=== PATIENT | male | born 1990 | race Caucasian/White ===

== ENCOUNTER → 2020-08-08 09:22 | Outpatient (CLI) | payer OTHER, MEDICAID, SELFPAY ==
--- NOTE | 2020-08-08 | DI.RAD.S_ITS ---
PROCEDURE: XR FOOT RT 2V INDICATIONS: FB RIGHT FOOT TECHNIQUE: 2 views of the foot were acquired. COMPARISON: None. FINDINGS: Bones: No fractures or dislocations. No suspicious bony lesions. Soft tissues: No tibiotalar joint effusion. Achilles tendon appears normal. 2 millimeter ovoid density noted adjacent to the medial margin of the head of the 5th metatarsal which may represent accessory ossicle versus radiodense foreign body. IMPRESSION: 2 millimeter radiodense foreign body versus accessory ossicle adjacent to the head of the 5th metatarsal. Dictated by: Jonelle March MD, PhD on 08/11/2020 at 15:54 Approved by: Jonelle March MD, PhD on 08/11/2020 at 15:56
== END ==
PROVIDERS: Family Provider Nurse Practitioner Family; PCP Student in an Organized Health Care Education/Training Program; Referring Provider Student in an Organized Health Care Education/Training Program; Visit Provider Student in an Organized Health Care Education/Training Program
DX: M79.5 Residual foreign body in soft tissue (principal)
CPT/HCPCS: 73620

== ENCOUNTER → 2020-11-13 09:35 | Outpatient (CLI) | payer OTHER, MEDICAID, SELFPAY ==
--- NOTE | 2020-11-13 | DI.RAD.S_ITS ---
PROCEDURE: XR HAND RT MIN 3V INDICATIONS: RIGHT DORSAL HAND W/ SWELLING, REDNESS, PAIN X 3 WEEKS TECHNIQUE: 3 views of the hand(s) acquired. COMPARISON: None. FINDINGS: Bones: No fractures or dislocations. Carpal bones are normally aligned. No suspicious bony lesions. Soft tissues: Ulnar-sided soft tissue swelling. No radiopaque foreign body. IMPRESSION: No fracture. Soft tissue swelling. If the patient's pain or other symptoms persist, consider further evaluation with MRI Dictated by: Yobani Estrada M.D. on 11/13/2020 at 10:10 Approved by: Yobani Estrada M.D. on 11/13/2020 at 10:13
== END ==
PROVIDERS: Family Provider Nurse Practitioner Family; PCP Student in an Organized Health Care Education/Training Program; Referring Provider Nurse Practitioner Family; Visit Provider Nurse Practitioner Family
DX: M79.641 Pain in right hand (principal); M79.89 Other specified soft tissue disorders
CPT/HCPCS: 73130

== ENCOUNTER → 2021-12-24 10:37 | Outpatient (CLI) | payer OTHER, MEDICAID, SELFPAY ==
--- NOTE | 2021-12-24 | DI.RAD.S_ITS ---
PROCEDURE: XR HAND RT MIN 3V INDICATIONS: RIGHT HAND PAIN TECHNIQUE: 3 views of the hand(s) acquired. COMPARISON: [facility], , XR HAND RT MIN 3V, 11/13/2020, 9:40. FINDINGS: Bones: No fractures or dislocations. Carpal bones are normally aligned. No suspicious bony lesions. Soft tissues: No suspicious soft tissue calcifications. IMPRESSION: Unremarkable right hand radiographs Approved by: Oliver Bailey M.D. on 12/24/2021 at 15:29
== END ==
PROVIDERS: Family Provider Nurse Practitioner Family; PCP Student in an Organized Health Care Education/Training Program; Referring Provider Student in an Organized Health Care Education/Training Program; Visit Provider Student in an Organized Health Care Education/Training Program
DX: M79.641 Pain in right hand (principal)
CPT/HCPCS: 73130

== ENCOUNTER 2021-12-25 09:20 | Emergency (ER) | payer OTHER, MEDICAID, SELFPAY ==
[2021-12-25 09:27] VITALS: BP 126/49; PULSE 88; RESP 16; TEMP 36.5; O2SAT 99; BMI 29.9
[2021-12-25 09:57] VITALS: BP 74/71; PULSE 50; RESP 15
[2021-12-25 10:00] VITALS: BP 74/38; PULSE 50; RESP 16
--- NOTE | 2021-12-25 10:01 | PC.NURSE ---
Pt w/ known vagal response to needle sticks. Layed supine in recliner prior to IV start. IV started w/o difficulty. Pt c/o dizziness but remained conscious. [place] better after 3-4 min. IV fluid order obtained.
[2021-12-25] MEDS: SODIUM CHLORIDE 0.9% 1,000 ML 1000 ML IV (10:03)
[2021-12-25 10:06] LABS: Add Manual Diff / Slide Review NO; Basophils Absolute Auto 0 /uL (0-100); Basophils Percent Auto 0.4 % (0-2); Eosinophils Absolute Auto 0 /uL (0-450); Eosinophils Percent Auto 0.2 % (2-4); Hematocrit 43.9 % (41-53); Hemoglobin 15.2 g/dL (13.5-17.5); Lymphocytes Absolute Auto 1900 /uL (1100-4500); Mean Corpuscular HGB Conc 34.5 % (30-36); Mean Corpuscular Hemoglobin 29.5 PG (26-34); Mean Corpuscular Volume 85.5 fL (80-100); Monocytes Absolute Auto 1000 /uL (0-900); Monocytes Percent Auto 8.5 % (3-14); Neutrophils Absolute Auto 8700 /uL (1500-7000); Neutrophils Percent Auto 74.9 % (50-75); Platelet Count 214 X10^3/uL (150-400); Red Blood Cell Count 5.14 X10^6/uL (4.5-5.9); Red Cell Distribution Width 12.8 % (11.6-14.8); White Blood Cell Count 11.6 X10^3/uL (4.5-11.0)
[2021-12-25 10:12] VITALS: BP 115/56; PULSE 80; RESP 17; O2SAT 99
--- NOTE | 2021-12-25 10:14 | ED.ABDPAIN ---
HPI - Abdominal Pain General Chief Complaint: Abdominal Pain Stated Complaint: left side pain/worse when eating/sent by [facility] Time Seen by Provider: 12/25/21 10:05 Source: patient Mode of arrival: Ambulatory History of Present Illness HPI narrative: Patient is a 31-year-old male who has history of acid reflux and ADHD presenting today left lower quadrant pain which started yesterday. His says it definitely gets worse with food. He has no change in bowel habits no fever nausea vomiting. He has had decrease in appetite and food intake due to his pain associated with food. No prior history of diverticulitis. He denies any flank pain. Related Data Home Medications Medication Instructions Recorded Confirmed famotidine 20 mg tablet 20 mg PO BEDTIME 12/25/21 12/25/21 methylphenidate HCl 5 mg tablet 5 mg PO TID PRN 12/25/21 12/25/21 Previous Rx's Medication Instructions Recorded ciprofloxacin HCl 500 mg tablet 500 mg PO BID #20 tab 12/25/21 (Cipro) metronidazole 500 mg tablet 500 mg PO Q8H 10 Days #30 tab 12/25/21 Allergies Allergy/AdvReac Type Severity Reaction Status Date / Time No Known Drug Allergies Allergy Verified 12/25/21 09:30 Review of Systems Review of Systems Narrative: GENERAL: Denies chills, fatigue, malaise, fever, sweats, travel HEENT: Denies sinus pain, ear pain, sore throat, difficulty swallowing, neck pain RESPIRATORY: Denies dyspnea, cough, wheezing, hemoptysis, sputum. CARDIOVASCULAR: Denies chest pain, palpitations, orthopnea, edema GASTROINTESTINAL: See HPI : Denies dysuria, frequency, incontinence, hematuria, urinary retention, flank pain. MUSCULOSKELETAL: Denies weakness, joint pain, or bony pain SKIN: No rash, no erythema, no pruritus NEUROLOGIC: Denies weakness, dizziness, headache, numbness, change in speech, confusion PSYCHIATRIC: No concerning psychosocial issues. 12 point review of systems is negative except for those stated above and HPI Patient History Medical History ADHD GERD (gastroesophageal reflux disease) Social History Smoking Status: Never smoker Smoking Status: Never smoker alcohol intake frequency: a few times a week Substance Use Type: does not use Exam Initial Vital Signs Initial Vital Signs: Vital Signs Temperature 97.7 F 12/25/21 09:27 Pulse Rate 88 12/25/21 09:27 Respiratory Rate 16 12/25/21 09:27 Blood Pressure 126/49 L 12/25/21 09:27 Pulse Oximetry 99 12/25/21 09:27 GENERAL: Well-appearing 31-year-old male and in no acute distress. HEENT: Head atraumatic,EOMI, pupils reactive, face symmetric, moist mucous membranes CARDIOVASCULAR: Regular rate and rhythm without murmurs, rubs or gallops. RESPIRATORY: Breath sounds equal bilaterally, no wheezes rales or rhonchi. ABDOMEN: Soft, left lower quadrant pain no guarding no rebound no right upper quadrant pain no right lower quadrant : No CVA tenderness EXTREMITIES: Normal range of motion, no clubbing or edema. Neurovascularly intact NEUROLOGICAL: Alert and oriented x4.N SKIN: Warm, dry, no laceration, no petechiae, no rashes or lesions. Course Orders Ordered: ED Orders 12/25/21 09:55 Complete Blood Count AUTO DIFF Stat Comprehensive Metabolic Panel Stat Lipase Stat 12/25/21 11:20 Urine Microscopic Stat Discontinued Medications Sodium Chloride (Normal Saline 0.9%) 1,000 mls @ 1,000 mls/hr IV BOLUS ONE Stop: 12/25/21 11:00 Last Infusion: 12/25/21 11:16 Dose: 0 mls/hr Documented by: Admin: 12/25/21 10:03 Dose: 1,000 mls/hr Documented by: BERTRAND Vital Signs Vital signs: Vital Signs - 8 hr 12/25/21 11:20 Pulse Rate 70 Respiratory Rate 16 Blood Pressure 122/72 Pulse Oximetry 99 MDM - Abdominal Pain Lab Data Result diagrams: 12/25/21 09:55 12/25/21 09:55 Labs: Lab Results 12/25/21 12/25/21 12/25/21 Range/Units 09:55 09:55 11:20 WBC 11.6 H (4.5-11.0) X10^3/uL RBC 5.14 (4.5-5.9) X10^6/uL Hgb 15.2 (13.5-17.5) g/dL Hct 43.9 (41-53) % MCV 85.5 (80-100) fL MCH 29.5 (26-34) PG MCHC 34.5 (30-36) % RDW 12.8 (11.6-14.8) % Plt Count 214 (150-400) X10^3/uL Neut % (Auto) 74.9 (50-75) % Lymph % (Auto) 16.0 L (25-40) % Phillips % (Auto) 8.5 (3-14) % Eos % (Auto) 0.2 L (2-4) % Baso % (Auto) 0.4 (0-2) % Neut # (Auto) 8700 H (7356-3699) /uL Lymph # (Auto) 1900 (9706-5223) /uL Phillips # (Auto) 1000 H (0-900) /uL Eos # (Auto) 0 (0-450) /uL Baso # (Auto) 0 (0-100) /uL Sodium 138 (137-145) mmol/L Potassium 4.2 (3.4-5.1) mmol/L Chloride 103 (98-107) mmol/L Carbon Dioxide 29 (22-32) mmol/L BUN 13 (9-20) mg/dL Creatinine 1.00 (0.66-1.25) mg/dL Estimated GFR > 60.0 (>60) mL/min BUN/Creatinine Ratio 13.0 (6-22) Glucose 99 (70-100) mg/dL Calcium 8.9 (8.4-10.2) mg/dL Total Bilirubin 1.2 (0.2-1.3) mg/dL AST 24 (17-59) IU/L ALT 32 (<50) IU/L Alkaline Phosphatase 71 (38-126) U/L Total Protein 7.7 (6.3-8.2) g/dL Albumin 4.7 (3.5-5.0) g/dL Globulin 3.0 (1.7-4.1) g/dL Albumin/Globulin Ratio 1.6 (1.0-2.8) Lipase 35 (23-300) U/L Urine RBC None seen (0-5/HPF) Urine WBC 0-1/hpf (0-5/HPF) Urine Bacteria None seen (None) Urine Mucus 1+ H (Negative) Ur Culture Indicated? Cult not indicated Point of care testing: Urine Dip Bedside Urine Glucose Negative Bedside Urine Bilirubin + 1 Bedside Urine Ketone +/- 5 Urine Specific [place] 1.015 Bedside Urine Occult Blood - Negative Bedside Urine pH 7.0 Bedside Urine Protein + 30 Bedside Urine Urobilinogen - Negative Bedside Urine Nitrite - Negative MDM Narrative Medical decision making narrative: Patient had a vasovagal like reaction with the IV, got better with IV fluids and like down. Patient has pain is left lower quadrant worse with food. Blood work is overall reassuring with mild leukocytosis. Discussed with him CT versus antibiotics and watchful waiting. At this time his like to hold off on the CT which I think is very reasonable and return if needed. Discharge Plan Departure Patient Disposition: Home Clinical Impression: Diverticulitis Instructions: Diverticulitis Activity Restrictions/Additional Instructions: *You have been diagnosed with diverticulitis *What to do: At this time try antibiotics. Give it 2-3 days her pain should start improving. His if her pain gets worse or you have fever or bloody stools please return to emergency department for further workup including CT scan. *Continue to take medications as directed--> SENT TO [facility] Cipro 500 mg twice a day for 10 days Flagyl 500 mg 3 times a day for 10 days (do not drink alcohol with this it will make you vomit) Motrin 600 mg every 6 hours if needed for [id number] pain Tylenol 1000 mg every 6 hours if needed the [id number] *Follow up with your primary care provider in 2-3 days or call [phone] *Return to ER if you should have increasing pain nausea vomiting, fever or any new, worsening or concerning symptoms Prescriptions: New metronidazole 500 mg tablet 500 mg PO Q8H 10 Days Qty: 30 0RF ciprofloxacin HCl [Cipro] 500 mg tablet 500 mg PO BID Qty: 20 0RF No Action methylphenidate HCl 5 mg tablet 5 mg PO TID PRN (Reason: adhd symptoms) 0RF Label Comments: take 1 tablet by mouth three times a day famotidine 20 mg tablet 20 mg PO BEDTIME 0RF Label Comments: take 1 tablet by mouth at bedtime Referrals: Evonne Crain MD [Primary Care Provider] -
[2021-12-25 10:22] LABS: Alanine Aminotransferase 32 IU/L (<50); Albumin 4.7 g/dL (3.5-5.0); Albumin Globulin Ratio 1.6 (1.0-2.8); Alkaline Phosphatase 71 U/L (38-126); Aspartate Aminotransferase 24 IU/L (17-59); Bilirubin Total 1.2 mg/dL (0.2-1.3); Blood Urea Nitrogen 13 mg/dL (9-20); Calcium 8.9 mg/dL (8.4-10.2); Carbon Dioxide 29 mmol/L (22-32); Chloride 103 mmol/L (98-107); Estimated Glomerular Filt Rate > 60.0 mL/min (>60); Glucose 99 mg/dL (70-100); HEMOLYSIS < 15 (0-50); Lipase 35 U/L (23-300); Potassium 4.2 mmol/L (3.4-5.1); Sodium 138 mmol/L (137-145); Total Protein 7.7 g/dL (6.3-8.2)
[2021-12-25 11:20] VITALS: BP 122/72; PULSE 70; RESP 16; O2SAT 99
[2021-12-25 11:51] LABS: Bacteria Urine None Seen; Culture Indicated Urine Cult Not Indicated; Mucus Urine 1+ (Negative); RBC Urine None Seen (0-5/HPF); WBC Urine 0-1/HPF (0-5/HPF)
== END 2021-12-25 11:22 | disposition home or self-care (01) ==
PROVIDERS: Emergency Provider Emergency Medicine; Family Provider Nurse Practitioner Family; PCP Student in an Organized Health Care Education/Training Program
DX: K57.92 Diverticulitis of intestine, part unspecified, without perforation or abscess without bleeding (principal)
CPT/HCPCS: 36415; 80053; 81003; 81015; 83690; 85025; 96360; 99283; 99284